=== PATIENT | male | born 1990 | race Hispanic/Latino ===

== ENCOUNTER 2019-10-12 18:05 | Emergency (ER) | payer SELFPAY ==
--- NOTE | 2019-10-12 18:16 | EDM.PDOC ---
ED HPI GENERAL MEDICAL PROBLEM - General Chief Complaint: Chest Pain Stated Complaint: CHEST PAIN X 5 DAYS Time Seen by Provider: 10/12/19 18:13 Source of Information: Reports: Patient History Limitations: Reports: No Limitations - History of Present Illness INITIAL COMMENTS - FREE TEXT/NARRATIVE: 29-year-old male of [place] descent presents to the ED complaining of central chest pain for the last 5 days. He states it is a constant aching discomfort and is not made worse by deep breathing or coughing. Not made worse by exertion or lying down or sitting forwards. Patient was diagnosed with COVID 19 illness on September 19. He was self quarantined in a local hotel room. It was felt that he was considered noninfective and could not return to work September 29. Does not feel that anything in the workplace has aggravated his chest pain or discomfort. He denies any heartburn or indigestion or reflux. He has been taking 2 aspirins daily 325 mg strength. He has no known heart disease. He states he has some gingival dental discomfort. He also reports his appetite has not really returned as well as it was before the COVID-19. No diarrhea. No cough or sputum production. Onset: Gradual Onset Date: 10/08/19 (Fairly constant central upper chest pain retrosternal for the last 5 days. Not made worse by exertion) Duration: Day(s):, Constant Location: Reports: Chest (Central chest pressure pain discomfort.). Denies: Upper Extremity, Left ( Rates it as a 4-5 out of 10.), Upper Extremity, Right, Generalized, Radiates to Quality: Reports: Ache, Pressure Severity: Moderate Improves with: Reports: None (4-5 out of 10.) Worsens with: Reports: None, Other (Not made worse by exertion or movement or deep breathing or coughing.) Context: Reports: Other (Covering from COVID-19 virus diagnosed on September 19.). Denies: Activity, Exercise, Lifting, Sick Contact, Trauma Associated Symptoms: Reports: Chest Pain, Malaise, Other (Decreased appetite from normal.). Denies: Cough, cough w sputum, Diaphoresis, Fever/Chills, Headaches, Nausea/Vomiting, Rash, Seizure, Shortness of Breath, Syncope, Weakness Treatments PATIENT PORTAL CONCIERGE: Reports: Other (see below) (To 325 mg aspirins daily.) Upper Chest Pain Score (Numeric/FACES): 8 - Related Data Allergies Allergy/AdvReac Type Severity Reaction Status Date / Time No Known Allergies Allergy Verified 10/12/19 18:15 Home Meds: Home Meds Famotidine [Pepcid AC] 20 mg PO BID #28 tablet 10/12/19 [Rx] Past Medical History - Infectious Disease History Infectious Disease History: Reports: Other (See Below) (COVID-19 virus diagnoses September 19 and quarantined for 10 days. Instructed that he could return to work by September 29.) Social & Family History - Living Situation & Occupation Living situation: Reports: Occupation: Employed (Family lives in another state. 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 Denies: Fever, Chills, Weight Loss HEENT: Reports: Dental Pain Respiratory: Denies: Shortness of Breath, Wheezing, Pleuritic Chest Pain, Cough, Sputum Cardiovascular: Reports: Chest Pain (See history of present illness). Denies: Blood Pressure Problem, Claudication, Dyspnea on Exertion, Edema, Lightheadedness, Orthopnea (Blood pressure however today is markedly elevated at 183 113. He is mildly anxious.), Palpitations Endocrine: Reports: Fatigue GI/Abdominal: Reports: Decreased Appetite (Eating as much as he did before he became ill with COVID.). Denies: Diarrhea, Nausea, Vomiting : Reports: No Symptoms Musculoskeletal: Reports: No Symptoms Skin: Reports: No Symptoms Neurological: Reports: No Symptoms Psychiatric: Reports: No Symptoms Hematologic/Lymphatic: Reports: No Symptoms Immunologic: Reports: No Symptoms ED EXAM, GENERAL - Physical Exam Exam: See Below Exam Limited By: No Limitations General Appearance: Alert, WD/WN, No Apparent Distress, Anxious (Mildly Anxious.), Other (Temperature is 37.1 heart rate 108 and sinus. Respiratory to 16 with O2 sats of 98% on room air BP is elevated at 183 113 on initial assessment) Eye Exam: Bilateral Eye: Normal Inspection, PERRL Throat/Mouth: Normal Inspection, Normal Lips, Normal Teeth, Normal Oropharynx Head: Atraumatic, Normocephalic Neck: Normal Inspection, Supple, Non-Tender, Full Range of Motion. No: Lymphadenopathy (L), Lymphadenopathy (R) Respiratory/Chest: No Respiratory Distress, Lungs Clear, Normal Breath Sounds, No Accessory Muscle Use, Chest Non-Tender Cardiovascular: Normal Peripheral Pulses, Regular Rate, Rhythm, No Edema, No Gallop, No Murmur, No Rub, Other (I could not elicit any chest wall pain on examination.) Peripheral Pulses: 2+: Posterior Tibial (L), Posterior Tibial (R), Dorsalis Pedis (L), Dorsalis Pedis (R), 3+: Carotid (L), Carotid (R) GI/Abdominal: Normal Bowel Sounds, Soft, Non-Tender, No Organomegaly, No Abnormal Bruit, No Mass, Pelvis Stable, Other (No tenderness in the epigastrium or right upper quadrant of the abdomen.) (Male) Exam: No Hernia Back Exam: Normal Inspection, Full Range of Motion. No: CVA Tenderness (L), CVA Tenderness (R) Extremities: Normal Inspection, Normal Range of Motion, Non-Tender, No Pedal Edema, Normal Capillary Refill Neurological: Alert, Oriented, CN II-XII Intact, Normal Cognition Psychiatric: Normal Mood, Anxious Skin Exam: Warm, Dry, Intact, Normal Color, No Rash EKG INTERPRETATION EKG Date: 10/12/19 Time: 18:10 Rhythm: Other Rate (Beats/Min): 102 [place]: RAD-Right [place] Deviation (120 degrees) P-Wave: Present QRS: Other (Left posterior fascicular block pattern) ST-T: Normal QT: Normal EKG Interpretation Comments: Abnormal ECG. No signs of ischemia or pericarditis Course - Vital Signs Last Recorded V/S: Last Vital Signs Temp 36.8 C 10/12/19 20:42 Pulse 102 H 10/12/19 20:42 Resp 18 10/12/19 20:42 BP 149/98 H 10/12/19 20:42 Pulse Ox 97 10/12/19 20:42 - Orders/Labs/Meds Labs: Laboratory Tests 10/12/19 10/12/19 10/12/19 Range/Units 18:40 18:40 18:40 WBC 10.79 H (4.23-9.07) K/mm3 RBC 4.84 (4.63-6.08) M/mm3 Hgb 14.4 (13.7-17.5) gm/dl Hct 44.1 (40.1-51.0) % MCV 91.1 (79.0-92.2) fl MCH 29.8 (25.7-32.2) pg MCHC 32.7 (32.2-35.5) g/dl RDW Std Deviation 42.9 (35.1-43.9) fL Plt Count 237 (163-337) K/mm3 MPV 10.9 (9.4-12.3) fl Neut % (Auto) 69.7 H (34.0-67.9) % Lymph % (Auto) 19.8 L (21.8-53.1) % [place] % (Auto) 9.1 (5.3-12.2) % Eos % (Auto) 1.1 (0.8-7.0) Baso % (Auto) 0.2 (0.1-1.2) % Neut # (Auto) 7.52 H (1.78-5.38) K/mm3 Lymph # (Auto) 2.14 (1.32-3.57) K/mm3 [place] # (Auto) 0.98 H (0.30-0.82) K/mm3 Eos # (Auto) 0.12 (0.04-0.54) K/mm3 Baso # (Auto) 0.02 (0.01-0.08) K/mm3 Manual Slide Review Normal smear PT 11.3 (9.7-12.0) SECONDS INR 1.06 APTT 29 (22-31) SECONDS D-Dimer, Quantitative < 0.19 L (0.19-0.50) mg/L Sodium 136 (136-145) mEq/L Potassium 3.7 (3.5-5.1) mEq/L Chloride 101 (98-107) mEq/L Carbon Dioxide 24 (21-32) mEq/L Anion Gap 14.7 (5-15) BUN 19 H (7-18) mg/dL Creatinine 1.0 (0.7-1.3) mg/dL Est Cr Clr Drug Dosing 115.04 mL/min Estimated GFR (MDRD) > 60 (>60) mL/min BUN/Creatinine Ratio 19.0 H (14-18) Glucose 111 H (74-106) mg/dL Calcium 9.0 (8.5-10.1) mg/dL Magnesium 1.9 (1.8-2.4) mg/dl Total Bilirubin 0.5 (0.2-1.0) mg/dL AST 22 (15-37) U/L ALT 54 (16-63) U/L Alkaline Phosphatase 64 (46-116) U/L Troponin I < 0.017 (0.00-0.056) ng/mL C-Reactive Protein 1.6 H* (<1.0) mg/dL NT-Pro-B Natriuret Pep (0-125) pg/mL Total Protein 7.8 (6.4-8.2) g/dl Albumin 4.2 (3.4-5.0) g/dl Globulin 3.6 gm/dL Albumin/Globulin Ratio 1.2 (1-2) 10/12/19 Range/Units 18:40 WBC (4.23-9.07) K/mm3 RBC (4.63-6.08) M/mm3 Hgb (13.7-17.5) gm/dl Hct (40.1-51.0) % MCV (79.0-92.2) fl MCH (25.7-32.2) pg MCHC (32.2-35.5) g/dl RDW Std Deviation (35.1-43.9) fL Plt Count (163-337) K/mm3 MPV (9.4-12.3) fl Neut % (Auto) (34.0-67.9) % Lymph % (Auto) (21.8-53.1) % [place] % (Auto) (5.3-12.2) % Eos % (Auto) (0.8-7.0) Baso % (Auto) (0.1-1.2) % Neut # (Auto) (1.78-5.38) K/mm3 Lymph # (Auto) (1.32-3.57) K/mm3 [place] # (Auto) (0.30-0.82) K/mm3 Eos # (Auto) (0.04-0.54) K/mm3 Baso # (Auto) (0.01-0.08) K/mm3 Manual Slide Review PT (9.7-12.0) SECONDS INR APTT (22-31) SECONDS D-Dimer, Quantitative (0.19-0.50) mg/L Sodium (136-145) mEq/L Potassium (3.5-5.1) mEq/L Chloride (98-107) mEq/L Carbon Dioxide (21-32) mEq/L Anion Gap (5-15) BUN (7-18) mg/dL Creatinine (0.7-1.3) mg/dL Est Cr Clr Drug Dosing mL/min Estimated GFR (MDRD) (>60) mL/min BUN/Creatinine Ratio (14-18) Glucose (74-106) mg/dL Calcium (8.5-10.1) mg/dL Magnesium (1.8-2.4) mg/dl Total Bilirubin (0.2-1.0) mg/dL AST (15-37) U/L ALT (16-63) U/L Alkaline Phosphatase (46-116) U/L Troponin I (0.00-0.056) ng/mL C-Reactive Protein (<1.0) mg/dL NT-Pro-B Natriuret Pep 9 (0-125) pg/mL Total Protein (6.4-8.2) g/dl Albumin (3.4-5.0) g/dl Globulin gm/dL Albumin/Globulin Ratio (1-2) Meds: Medications Discontinued Medications Generic Name Dose Route Start Last Admin Trade Name Freq PRN Reason Stop Dose Admin Dextrose/Sodium Chloride 1,000 mls @ 500 mls/hr 10/12/19 18:30 10/12/19 18:45 Dextrose 5%-Normal Saline IV 500 mls/hr ASDIRECTED FARHAN Administration Iopamidol 80 ml 10/12/19 19:43 10/12/19 19:55 Isovue-300 (61%) IVPUSH 10/12/19 19:44 80 ml ONETIME ONE Administration Ketorolac Tromethamine 30 mg 10/12/19 18:30 10/12/19 18:45 Toradol IVPUSH 30 mg ONETIME FARHAN Administration Sodium Chloride 10 ml 10/12/19 19:43 10/12/19 19:56 Saline Flush FLUSH 10 ml ONETIME PRN Administration Keep Vein Open - Radiology Interpretation Free Text/Narrative:: 29-year-old male of [place] descent presents to the ED with a 5-day history of upper retrosternal chest pressure/heaviness. He states that it is not in a made worse by exertion and it is there constantly whether he is sitting around or walking or driving a vehicle. The history suggest that he was diagnosed with COVID-19 positivity on September 19. He was symptomatic 4 days prior to that. It took 4 days to get the results back after testing at [facility]. He was off work until September 29 when it was felt that it was safe for him to return to work and that he was no longer shedding the virus. He states since that time he has had some discomfort in his gingiva margin and his appetite really has not come back as well as it was prior to the illness. He denies cough or sputum production. He has no known heart disease. Examination was completely normal I could not elicit any chest wall pain on exam. ECG done by triage nurse shows a sinus tachycardia at 102/min. He had a right axis deviation of 120 degrees with a left posterior fascicular block pattern. No signs of ischemia and no signs of pericarditis. Plan 1 view chest x-ray will be done. Labs to be obtained to include a d-dimer and a serum troponin value. CRP as well. - Re-Assessments/Exams Free Text/Narrative Re-Assessment/Exam: 10/12/19 18:52 1 view chest x-ray performed reveals no pulmonary infiltrates. Cardiac silhouette is upper limits of normal. No evidence of vascular congestion on portable chest x-ray 10/12/19 19:16 White count was slightly elevated at 10.79. The auto differential shows 70% neutrophils. Hemoglobin is 14.4 with hematocrit of 44.1. Platelet count 237,000. 10/12/19 19:43 radiologist interprets the chest x-ray as suggesting there may be a small nodule in the left perihilar area. It is uncertain if this represents a real nodule versus a vessel on and. Recommend CT of the chest with IV contrast. I discussed this with the patient and his on the phone who acts as his net lead developer. We will proceed with a CT of the chest with IV contrast.PT is 11.3. INR is 1.06. PTT is 29 d-dimer is normal at less than 0.19. Blood p ressure has improved to 157/99. Believe he remains fairly anxious. 10/12/19 19:50 Sodium is 136 with a potassium of 3.7. Chloride is 101 with a bicarb of 24. Anion gap is 14.7. BUN is 19 with a creatinine of 1.0. GFR is greater than 60. Glucose is 111 with a calcium of 9.0. Magnesium is normal at 1.9. Liver function is normal. Troponin I is less than 0.017. C-reactive protein is slightly elevated at 1.6. BNP is 9 with a total protein of 7.8 albumin fraction 4.2. 10/12/19 20:16 CT chest with contrast has been performed. It reveals normal cardiac silhouette and great vessels. There is a small calcified nodule noted within the superior segment of the left lower lung field with adjacent pleural thickening. This likely correlates to the nodule on the chest x-ray. I believe that this is benign in origin. Lungs are otherwise clear. He does have a mild hiatal hernia. Liver appears homogeneous with mild fatty infiltration.. Gallbladder contains no calcified gallstones. Pancreas appears normal. Spleen appears normal. Visualized portions of the kidneys appear to be within normal limits. Great vessels and aorta appear normal. Discussed the findings with the patient and his on the phone he indicates that drinking cold ice water will make him have similar type pain or worsen his pain indicating that he has odynophagia. This is most likely been caused by occult reflux which he is not aware of his he rarely gets heartburn. Patient reassured. He will avoid alcohol and acidic foods for the next week to [address] him on Pepcid 20 mg twice daily morning and bedtime for the next 2 weeks to allow his food pipe to heal. He is try to try and avoid eating anything or having a full stomach for 3 hours before going to bed. Departure - Departure Time of Disposition: 20:25 Disposition: Home, Self-Care 01 Reason for Transfer *Q: Other Condition: Fair Clinical Impression: Odynophagia, Esophagitis Prescriptions: Famotidine [Pepcid AC] 20 mg PO BID #28 tablet Instructions: Esophagitis Referrals: PCP,None [Primary Care Provider] - Forms: ED Department Discharge Additional Instructions: Evaluation in the emergency room today in regards to persistent central chest pressure discomfort worsened by drinking cold fluids for the last 5 days. This occurred after developing COVID-19 illness diagnosed September 19. Have been cleared to return to work as of September 29. Complete cardiac work-up or heart work-up done in the ED shows no evidence of heart related illness. Chest x-ray suggested a small nodule adjacent to the left hilum of the lung which is where the blood vessels enter the heart on the left side. Therefore CT of this area was carried out with intravenous contrast and revealed that there is a small calcified nodule in this area which is completely benign in appearance and shows no sign of any cancer. It also however showed that you have a small hiatal hernia which means the valve at the lower portion of your food pipe and stomach junction is open most of the time indicating that you are very prone to reflux of acid or food content from your stomach likely during the night when you are sleeping. As you indicated it is painful to swallow ice water which indicates the food pipe is going into spasm and causing the pain. My suggestion is to clam picker some Pepcid 20 mg tablet which is [id number] at [facility] and take 1 at bedtime and 1 first thing in the morning for the next 2 weeks to allow the food pipe to heal. Try not to go to bed or lay down for at least 3 hours after eating or drinking a meal. Avoid alcohol if able to for the next 7 to 10 days and acidic foods such as orange juice ,grapefruit juice or spicy foods that may irritate the food pipe. If not markedly improved in 7 to 10 days time you should be seen again with a view to having upper GI scoping or endoscopy to make sure there is no other problem with the food pipe. This time there is no other restrictions in activity or work. Sepsis Event Note (ED) - Focused Exam Vital Signs: Vital Signs Temp Pulse Resp BP Pulse Ox 10/12/19 20:42 36.8 C 102 H 18 149/98 H 97 10/12/19 18:12 37.1 C 108 H 16 183/113 H 98
[2019-10-12] MEDS ORDERED: Dextrose 5%-0.9% NaCl 1,000 ML IV SCH (18:30)
[2019-10-12] MEDS ORDERED: Ketorolac 30 MG/ML SDV IVPUSH SCH (18:30)
--- NOTE | 2019-10-12 19:27 | CR ---
Chest: Portable view of the chest was obtained. Comparison: No previous chest imaging is available. Nodular density is noted within the left hilum. Uncertain if this represents real nodule or represents a vessel on end. Lungs otherwise are clear. Heart size and mediastinum are normal. Bony structures are unremarkable. Impression: 1. Nodular density within left hilum. As mentioned above, uncertain if this is a real nodule or represents a vessel on end. Contrast-enhanced chest CT would be helpful to rule out a nodule. 2. Nothing acute is otherwise seen. Diagnostic code #9 Study was dictated in MDT
[2019-10-12] MEDS ORDERED: Sodium Chloride 0.9% 10 ML Syringe FLUSH PRN (19:43)
[2019-10-12] MEDS ORDERED: Iopamidol 612 MG/ML 100 ML Bottle IVPUSH ONE (19:43)
--- NOTE | 2019-10-12 20:16 | CT ---
CT chest Technique: Multiple axial sections through the chest were obtained. Intravenous contrast was utilized. Comparison: Previous chest x-ray performed earlier on the same day (6:23 PM). Findings: Small calcified nodule is noted within the superior segment of the left lower lung with adjacent pleural thickening. This likely correlates to the nodule on the chest x-ray. I believe that this is benign. Lungs otherwise are clear. No acute parenchymal change is appreciated. Mediastinum and hilar regions show no adenopathy or mass. No pericardial thickening seen. Fatty infiltration is noted within the liver. No acute abnormality is seen within the upper abdomen. Bone window settings were reviewed which shows no acute osseous finding. Impression: 1. Calcified nodule posteriorly within the superior segment of the left upper lung with an associated area of pleural thickening. This is believed to be benign and is felt to cause the nodule on chest x-ray. 2. Nothing acute is otherwise appreciated on CT study of the chest. 3. Upper abdomen shows fatty infiltration within the liver. Diagnostic code #2 Study was dictated in MDT
== END 2019-10-12 20:42 | disposition home or self-care (01) ==
LOC: JD.ED 18:05
DX: K20.9 Esophagitis, unspecified (principal); R13.10 Dysphagia, unspecified
CPT/HCPCS: 36415; 71045; 71260; 80053; 83735; 83880; 84484; 85025; 85379; 85610; 85730; 86140; 93005; 96361; 96374; 99285; J1885; J7042; Q9967; 93010; 99284

== ENCOUNTER 2019-11-14 13:23 | Emergency (ER) | payer SELFPAY ==
--- NOTE | 2019-11-14 15:47 | EDM.PDOC ---
ED HPI GENERAL MEDICAL PROBLEM - General Chief Complaint: Abdominal Pain Stated Complaint: R SIDE ABDOMINAL PAIN Time Seen by Provider: 11/14/19 13:38 Source of Information: Reports: Patient, RN Notes Reviewed - History of Present Illness INITIAL COMMENTS - FREE TEXT/NARRATIVE: 39 yr old male with RUQ and R flank pain off and on for the past several weeks. Worse yesterday and earlier today. Now at time of exam somewhat better. No vomiting or diarrhea. No voiding sx. Had a nl US 3 wks ago. No fever, chills cough or chest pain. Right Upper Abdomen Pain Score (Numeric/FACES): 7 - Related Data Allergies Allergy/AdvReac Type Severity Reaction Status Date / Time No Known Allergies Allergy Verified 11/14/19 13:32 Home Meds: Home Meds Famotidine [Pepcid AC] 20 mg PO BID #28 tablet 10/12/19 [Rx] Past Medical History - Past Health History Medical/Surgical History: Denies Medical/Surgical History HEENT History: Reports: None Cardiovascular History: Reports: None Respiratory History: Reports: Sleep Apnea Gastrointestinal History: Reports: GERD Genitourinary History: Reports: None Musculoskeletal History: Reports: None Neurological History: Reports: None Psychiatric History: Reports: None Endocrine/Metabolic History: Reports: None Hematologic History: Reports: None Immunologic History: Reports: None Oncologic (Cancer) History: Reports: None Dermatologic History: Reports: None - Infectious Disease History Infectious Disease History: Reports: None - Past Surgical History Head Surgeries/Procedures: Reports: None HEENT Surgical History: Reports: None Other Respiratory Surgeries/Procedures: CPAP Other GI Surgeries/Procedures: US of Gall Bladder last week and it was ok. Fatty Liver Social & Family History - Family History Family Medical History: Noncontributory Cardiac: Reports: Hypertension Endocrine/Metabolic: Reports: Diabetes, type II - Tobacco Use Smoking Status *Q: Former Smoker Used Tobacco, but Quit: Yes Month/Year Tobacco Last Used: 08/2019 - Caffeine Use Caffeine Use: Reports: Soda - Recreational Drug Use Recreational Drug Use: No - Living Situation & Occupation Living situation: Reports: Occupation: Employed (Family lives in another state. 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 Denies: Constipation, Diarrhea, Vomiting Musculoskeletal: Reports: Back Pain Neurological: Reports: No Symptoms ED EXAM, GI/ABD - Physical Exam Exam: See Below General Appearance: Alert, No Apparent Distress Head: Atraumatic Respiratory/Chest: No Respiratory Distress, Lungs Clear, Normal Breath Sounds Cardiovascular: Regular Rate, Rhythm GI/Abdominal Exam: Soft, Tender (very mild diffuse R upper and upper mid abd tenderness. RLQ nontender) Back Exam: CVA Tenderness (R). No: CVA Tenderness (L) Neurological: Alert, Oriented, No Motor/Sensory Deficits Skin Exam: Warm, Dry, Normal Color Course - Vital Signs Last Recorded V/S: Last Vital Signs Temp 97.1 F 11/14/19 13:35 Pulse 93 11/14/19 13:35 Resp 18 11/14/19 13:35 BP 148/99 H 11/14/19 13:35 Pulse Ox 98 11/14/19 13:35 - Orders/Labs/Meds Labs: Laboratory Tests 11/14/19 11/14/19 11/14/19 Range/Units 13:30 13:37 13:37 WBC 7.54 (4.23-9.07) K/mm3 RBC 4.83 (4.63-6.08) M/mm3 Hgb 14.4 (13.7-17.5) gm/dl Hct 43.5 (40.1-51.0) % MCV 90.1 (79.0-92.2) fl MCH 29.8 (25.7-32.2) pg MCHC 33.1 (32.2-35.5) g/dl RDW Std Deviation 41.1 (35.1-43.9) fL Plt Count 204 (163-337) K/mm3 MPV 11.2 (9.4-12.3) fl Neut % (Auto) 62.1 (34.0-67.9) % Lymph % (Auto) 26.3 (21.8-53.1) % Hooker % (Auto) 8.8 (5.3-12.2) % Eos % (Auto) 2.3 (0.8-7.0) Baso % (Auto) 0.4 (0.1-1.2) % Neut # (Auto) 4.69 (1.78-5.38) K/mm3 Lymph # (Auto) 1.98 (1.32-3.57) K/mm3 Hooker # (Auto) 0.66 (0.30-0.82) K/mm3 Eos # (Auto) 0.17 (0.04-0.54) K/mm3 Baso # (Auto) 0.03 (0.01-0.08) K/mm3 Sodium (136-145) mEq/L Potassium (3.5-5.1) mEq/L Chloride (98-107) mEq/L Carbon Dioxide (21-32) mEq/L Anion Gap (5-15) BUN (7-18) mg/dL Creatinine (0.7-1.3) mg/dL Est Cr Clr Drug Dosing mL/min Estimated GFR (MDRD) (>60) mL/min BUN/Creatinine Ratio (14-18) Glucose (74-106) mg/dL Calcium (8.5-10.1) mg/dL Total Bilirubin (0.2-1.0) mg/dL GGT (15-85) U/L AST (15-37) U/L ALT (16-63) U/L Alkaline Phosphatase (46-116) U/L C-Reactive Protein 0.8 (<1.0) mg/dL Total Protein (6.4-8.2) g/dl Albumin (3.4-5.0) g/dl Globulin gm/dL Albumin/Globulin Ratio (1-2) Lipase (73-393) U/L Urine Color Light yellow (Yellow) Urine Appearance Clear (Clear) Urine pH 7.0 (5.0-8.0) Ur Specific Jamul 1.015 (1.005-1.030) Urine Protein Negative (Negative) Urine Glucose (UA) Negative (Negative) Urine Ketones Negative (Negative) Urine Occult Blood Negative (Negative) Urine Nitrite Negative (Negative) Urine Bilirubin Negative (Negative) Urine Urobilinogen 0.2 (0.2-1.0) Ur Leukocyte Esterase Negative (Negative) 11/14/19 Range/Units 13:37 WBC (4.23-9.07) K/mm3 RBC (4.63-6.08) M/mm3 Hgb (13.7-17.5) gm/dl Hct (40.1-51.0) % MCV (79.0-92.2) fl MCH (25.7-32.2) pg MCHC (32.2-35.5) g/dl RDW Std Deviation (35.1-43.9) fL Plt Count (163-337) K/mm3 MPV (9.4-12.3) fl Neut % (Auto) (34.0-67.9) % Lymph % (Auto) (21.8-53.1) % Hooker % (Auto) (5.3-12.2) % Eos % (Auto) (0.8-7.0) Baso % (Auto) (0.1-1.2) % Neut # (Auto) (1.78-5.38) K/mm3 Lymph # (Auto) (1.32-3.57) K/mm3 Hooker # (Auto) (0.30-0.82) K/mm3 Eos # (Auto) (0.04-0.54) K/mm3 Baso # (Auto) (0.01-0.08) K/mm3 Sodium 137 (136-145) mEq/L Potassium 3.8 (3.5-5.1) mEq/L Chloride 100 (98-107) mEq/L Carbon Dioxide 27 (21-32) mEq/L Anion Gap 13.8 (5-15) BUN 9 (7-18) mg/dL Creatinine 1.0 (0.7-1.3) mg/dL Est Cr Clr Drug Dosing 104.58 mL/min Estimated GFR (MDRD) > 60 (>60) mL/min BUN/Creatinine Ratio 9.0 L (14-18) Glucose 110 H (74-106) mg/dL Calcium 8.8 (8.5-10.1) mg/dL Total Bilirubin 0.6 (0.2-1.0) mg/dL GGT 22 (15-85) U/L AST 22 (15-37) U/L ALT 42 (16-63) U/L Alkaline Phosphatase 65 (46-116) U/L C-Reactive Protein (<1.0) mg/dL Total Protein 7.4 (6.4-8.2) g/dl Albumin 4.3 (3.4-5.0) g/dl Globulin 3.1 gm/dL Albumin/Globulin Ratio 1.4 (1-2) Lipase 99 (73-393) U/L Urine Color (Yellow) Urine Appearance (Clear) Urine pH (5.0-8.0) Ur Specific Jamul (1.005-1.030) Urine Protein (Negative) Urine Glucose (UA) (Negative) Urine Ketones (Negative) Urine Occult Blood (Negative) Urine Nitrite (Negative) Urine Bilirubin (Negative) Urine Urobilinogen (0.2-1.0) Ur Leukocyte Esterase (Negative) - Re-Assessments/Exams Free Text/Narrative Re-Assessment/Exam: 11/14/19 19:46 WBC, CRP, UA nl, discharge instr. as documented. Departure - Departure Time of Disposition: 16:00 Disposition: Home, Self-Care 01 Condition: Fair Clinical Impression: Abdominal pain Qualifiers: Abdominal location: right upper quadrant Qualified Code(s): R10.11 - Right upper quadrant pain - Discharge Information Instructions: Abdominal Pain, Adult, [id number] Referrals: PCP,Not In Area [Primary Care Provider] - Forms: ED Department Discharge Additional Instructions: Careful bland low fat diet for now. Fried and fatty foods must be avoided for now. Eggs, beans, bread, fruit vegetables, cereal with 1 or 2 % mild should be safe. No ice cream for now. See one of our clinic providers in about 1 week for recheck, further eval and treatment will be provided as needed. Call [phone] for appointment. Return to ED if symptoms worsening in any way. CT of Abd can be considered or HIDA scan of gallbladder also consideration for more information. Sepsis Event Note (ED) - Evaluation Sepsis Screening Result: No Definite Risk - Focused Exam Vital Signs: Vital Signs Temp Pulse Resp BP Pulse Ox 11/14/19 13:35 97.1 F 93 18 148/99 H 98
== END 2019-11-14 16:15 | disposition home or self-care (01) ==
LOC: JD.ED 13:23 → EDBD 13:23 → JD.ED 16:15
DX: R10.11 Right upper quadrant pain (principal); K21.9 Gastro-esophageal reflux disease without esophagitis; Z87.891 Personal history of nicotine dependence
CPT/HCPCS: 36415; 80053; 81003; 82977; 83690; 85025; 86140; 99282; 99284